=== PATIENT | male | born 1965 | race Caucasian/White ===

== ENCOUNTER → 2016-06-25 | Outpatient (CLI) | payer BC, OTHER ==
[~2016-06-25] MED LIST: BUPR-79 PO; DIVA500T3 PO; LOSA100T2 PO; NIFE60TA57 PO; ZIPR1CAP4 PO
[2016-06-25 14:05] LABS: BLOOD UREA NITROGEN 16 mg/dl (7-18); BUN/CREATININE RATIO 13.1 (10-20); CARBON DIOXIDE 27 mmol/L (21-32); CHLORIDE 102 mmol/L (98-107); GLUCOSE 84 mg/dl (70-99); POTASSIUM 3.9 mmol/L (3.5-5.1); SODIUM 139 mmol/L (136-145)
== END | disposition home or self-care (01) ==
LOC: C.LABMFLN 08:07
PROVIDERS: ATTEND Family Medicine
DX: Z11.59 Encounter for screening for other viral diseases (principal); I10 Essential (primary) hypertension

== ENCOUNTER 2016-07-29 12:21 | Emergency (ER) | payer BC ==
[~2016-07-29] VITALS: Ht 177.8 cm; Wt 96.2 kg
[~2016-07-29 12:21] MED LIST changes: -ZIPR1CAP4 PO
[2016-07-29 12:24] VITALS: TEMP 36.8; Ht 177.8 cm; Wt 96.2 kg
[2016-07-29] MEDS ORDERED: KETOROLAC TROMETHAMINE 30 MG/ML VIAL IV STA (12:31)
[2016-07-29] MEDS ORDERED: ONDANSETRON INJ 2 MG/ML 2 ML VIAL IV STA (12:31)
[2016-07-29] MEDS ORDERED: SODIUM CHLORIDE 0.9% 1000ML 1,000 ML IV STA (12:31)
[2016-07-29 12:51] LABS: BASO % 0.3 %; BASO ABS # 0.02 K/uL (0-0.2); COMPLETE YES; HEMATOCRIT 46.1 % (42-52); IG% 0.4 %; LYMPH % 39.7 %; MEAN CORPUSCULAR HEMOGLOBIN 31.1 pg (25-34); MEAN CORPUSCULAR HGB CONC 34.9 g/dl (32-36); MEAN PLATELET VOLUME 10.1 fL (7.4-10.4); MONO % 8.9 %; NEUT % 49.7 %; PLATELET COUNT 206 K/uL (130-400); RED BLOOD COUNT 5.18 M/uL (4.7-6.1); WHITE BLOOD COUNT 7.06 K/uL (4.8-10.8)
[2016-07-29 13:01] LABS: BUN/CREATININE RATIO 17.3 (10-20); CALCIUM 8.9 mg/dl (8.5-10.1); CREATININE 1.2 mg/dl (0.60-1.40); POTASSIUM 3.9 mmol/L (3.5-5.1)
--- NOTE | 2016-07-29 13:06 | DIAGNOSTIC IMAGING REPORT ---
ABDOMEN AND PELVIS CT WITHOUT CONTRAST CT DOSE: 1174.56 mGy.cm HISTORY: Right-sided flank pain TECHNIQUE: Multiaxial CT images of the abdomen and pelvis were performed without the use of intravenous and oral contrast according to the standard department stone protocol. COMPARISON STUDY: Abdomen and pelvis CT 01/30/2016. FINDINGS: No renal or ureteral stones. Mild fullness within the right renal collecting system and right ureter without hydronephrosis. There is also mild right periureteral fat stranding. There is a punctate stone within the left side the bladder. Therefore, these findings favor a recently passed right ureteral stone. Stable 9 mm hypodense lesion within the left hepatic dome. This is too small to characterize but favors a cyst. The unenhanced spleen, adrenal glands, pancreas, and gallbladder are unremarkable. The lung bases are clear. Tiny fat-containing umbilical hernia. Suboptimal evaluation for bowel pathology due to the lack of intravenous and oral contrast. However, there is no definite bowel wall thickening or obstruction. Normal appendix. Colonic diverticulosis. IMPRESSION: 1. No renal or ureteral stones. 2. Mild fullness within the right renal collecting system and right ureter without hydronephrosis. There is also mild right periureteral fat stranding. There is a punctate stone within the left side the bladder. Therefore, these findings favor a recently passed right ureteral stone. Electronically signed by: Jamar Patel M.D. 07/29/2016 1:04 PM Dictated Date/Time: 07/29/2016 12:59 PM
[2016-07-29] MEDS ORDERED: ZIPR1CAP4 PO (13:34)
[2016-07-29 13:36] LABS: URINE APPEARANCE CLEAR (CLEAR); URINE BILIRUBIN NEG (NEG); URINE COLOR YELLOW; URINE NITRITE NEG (NEG); URINE PH 6.5 (4.5-7.5); URINE SPECIFIC GRAVITY 1.018 (1.000-1.030); UROBILINOGEN NEG (NEG); ZZUR CULT IF INDIC CLEAN CATCH NO
[2016-07-29 13:38] LABS: MANUAL MICROSCOPIC REQUIRED? NO; REVIEW REQ? NO
--- NOTE | 2016-07-29 13:47 | EMERGENCY ROOM VISIT NOTE ---
History Report prepared by Anthony: Alla Irving Under the Supervision of: Dr. Naveen Lawson D.O. First contact with patient: 12:30 Chief Complaint: KIDNEY STONE Stated Complaint: KIDNEY STONE History of Present Illness The patient is a 51 year old male who presents to the Emergency Room with complaints of persistent abdominal pain starting last night. Last night he woke up with pain in his back. He took a muscle relaxer to go back to sleep. In the morning he began to feel pain in his testicle which then migrated up to his abdomen. He denies any pain or swelling in the testicle now. He reports decreased urination. He denies any hematuria. He had some nausea on the way here. Source of History: patient Onset: last night Position: abdomen Quality: other (pain) Timing: other (persistent) Associated Symptoms: + nausea Note: Pt reports decreased urination. Pt denies any hematuria. Review of Systems See HPI for pertinent positives & negatives. A total of 10 systems reviewed and were otherwise negative. Past Medical & Surgical Medical Problems: (1) Hypertension (2) Kidney stone Family History Cancer Hypertension Social History Smoking Status: Never Smoker Marital Status: other (legally ) Housing Status: lives alone Occupation Status: employed Current/Historical Medications Scheduled Bupropion (Wellbutrin Sr), 150 MG PO DAILY Divalproex Sodium (Depakote Er), 500 MG PO QAM Divalproex Sodium (Depakote Er), 1,500 MG PO QPM Losartan Potassium & Hydrochlo (Hyzaar), 1 TAB PO DAILY Nifedipine Ext Rel (Procardia Xl Ext Rel), 60 MG PO DAILY Ziprasidone Hcl (Geodon), 1 CAP PO BID Physical Exam Vital Signs Date Time Temp Pulse Resp B/P Pulse Ox O2 Delivery O2 Flow Rate FiO2 07/29/16 13:54 69 18 134/88 96 Room Air 07/29/16 12:24 36.8 66 18 162/100 96 Room Air Physical Exam CONSTITUTIONAL/VITAL SIGNS: Reviewed / noted above. GENERAL: Non-toxic in appearance. INTEGUMENTARY: Warm, dry, and [place]. HEAD: Normocephalic. EYES: without scleral icterus or trauma. ENT/OROPHARYNX: clear and moist. LYMPHADENOPATHY/NECK: Is supple without lymphadenopathy or meningismus. RESPIRATORY: Lungs clear and equal. CARDIOVASCULAR: Regular rate and rhythm. GI/ABDOMEN: Soft and nontender. No organomegaly or pulsatile mass. No rebound or guarding. Normal bowel sounds. EXTREMITIES: Warm and well perfused. BACK: No CVA tenderness. NEUROLOGICAL: Intact without focal deficits. PSYCHIATRIC: normal affect. MUSCULOSKELETAL: Normally developed with good muscle tone. Medical Decision & Procedures ER Provider Diagnostic Interpretation: Radiology results as stated below per my review and radiologist interpretation: ABDOMEN AND PELVIS CT WITHOUT CONTRAST CT DOSE: 1174.56 mGy.cm HISTORY: Right-sided flank pain TECHNIQUE: Multiaxial CT images of the abdomen and pelvis were performed without the use of intravenous and oral contrast according to the standard department stone protocol. COMPARISON STUDY: Abdomen and pelvis CT 01/30/2016. FINDINGS: No renal or ureteral stones. Mild fullness within the right renal collecting system and right ureter without hydronephrosis. There is also mild right periureteral fat stranding. There is a punctate stone within the left side the bladder. Therefore, these findings favor a recently passed right ureteral stone. Stable 9 mm hypodense lesion within the left hepatic dome. This is too small to characterize but favors a cyst. The unenhanced spleen, adrenal glands, pancreas, and gallbladder are unremarkable. The lung bases are clear. Tiny fat-containing umbilical hernia. Suboptimal evaluation for bowel pathology due to the lack of intravenous and oral contrast. However, there is no definite bowel wall thickening or obstruction. Normal appendix. Colonic diverticulosis. IMPRESSION: 1. No renal or ureteral stones. 2. Mild fullness within the right renal collecting system and right ureter without hydronephrosis. There is also mild right periureteral fat stranding. There is a punctate stone within the left side the bladder. Therefore, these findings favor a recently passed right ureteral stone. Electronically signed by: Jamar Patel M.D. 07/29/2016 1:04 PM Dictated Date/Time: 07/29/2016 12:59 PM Laboratory Results 07/29/16 12:35 Red Blood Count 5.18, Mean Corpuscular Volume 89.0, Mean Corpuscular Hemoglobin 31.1, Mean Corpuscular Hemoglobin Concent 34.9, Mean Platelet Volume 10.1, Neutrophils (%) (Auto) 49.7, Lymphocytes (%) (Auto) 39.7, Monocytes (%) (Auto) 8.9, Eosinophils (%) (Auto) 1.0, Basophils (%) (Auto) 0.3, Neutrophils # (Auto) 3.51, Lymphocytes # (Auto) 2.80, Monocytes # (Auto) 0.63, Eosinophils # (Auto) 0.07, Basophils # (Auto) 0.02 07/29/16 12:35 Test 07/29/16 12:35 07/29/16 13:00 White Blood Count 7.06 K/uL (4.8-10.8) Red Blood Count 5.18 M/uL (4.7-6.1) Hemoglobin 16.1 g/dL (14.0-18.0) Hematocrit 46.1 % (42-52) Mean Corpuscular Volume 89.0 fL (80-100) Mean Corpuscular Hemoglobin 31.1 pg (25-34) Mean Corpuscular Hemoglobin Concent 34.9 g/dl (32-36) Platelet Count 206 K/uL (130-400) Mean Platelet Volume 10.1 fL (7.4-10.4) Neutrophils (%) (Auto) 49.7 % Lymphocytes (%) (Auto) 39.7 % Monocytes (%) (Auto) 8.9 % Eosinophils (%) (Auto) 1.0 % Basophils (%) (Auto) 0.3 % Neutrophils # (Auto) 3.51 K/uL (1.4-6.5) Lymphocytes # (Auto) 2.80 K/uL (1.2-3.4) Monocytes # (Auto) 0.63 K/uL (0.11-0.59) Eosinophils # (Auto) 0.07 K/uL (0-0.5) Basophils # (Auto) 0.02 K/uL (0-0.2) RDW Standard Deviation 41.7 fL (36.4-46.3) RDW Coefficient of Variation 12.9 % (11.5-14.5) Immature Granulocyte % (Auto) 0.4 % Immature Granulocyte # (Auto) 0.03 K/uL (0.00-0.02) Anion Gap 5.0 mmol/L (3-11) Est Creatinine Clear Calc Drug Dose 82.9 ml/min Estimated GFR () 79.5 Estimated GFR (Non- 68.6 BUN/Creatinine Ratio 17.3 (10-20) Calcium Level 8.9 mg/dl (8.5-10.1) Total Bilirubin 0.4 mg/dl (0.2-1) Direct Bilirubin 0.1 mg/dl (0-0.2) Aspartate Amino Transf (AST/SGOT) 18 U/L (15-37) Alanine Aminotransferase (ALT/SGPT) 28 U/L (12-78) Alkaline Phosphatase 99 U/L (45-117) Total Protein 7.3 gm/dl (6.4-8.2) Albumin 3.7 gm/dl (3.4-5.0) Lipase 239 U/L (73-393) Urine Color YELLOW Urine Appearance CLEAR (CLEAR) Urine pH 6.5 (4.5-7.5) Urine Specific [place] 1.018 (1.000-1.030) Urine Protein NEG (NEG) Urine Glucose (UA) NEG (NEG) Urine Ketones NEG (NEG) Urine Occult Blood 3+ (NEG) Urine Nitrite NEG (NEG) Urine Bilirubin NEG (NEG) Urine Urobilinogen NEG (NEG) Urine Leukocyte Esterase NEG (NEG) Urine WBC (Auto) 1-5 /hpf (0-5) Urine RBC (Auto) >30 /hpf (0-4) Urine Hyaline Casts (Auto) 0 /lpf (0-5) Urine Epithelial Cells (Auto) 5-10 /lpf (0-5) Urine Bacteria (Auto) NEG (NEG) Laboratory results as stated above per my review. Medications Administered Medications (Trade) Dose Ordered Sig/Jazz Route Start Time Stop Time Status Last Admin Dose Admin Sodium Chloride (Nss 1000ml) 1,000 ml @ 999 mls/hr Q1H1M STAT IV 07/29/16 12:31 07/29/16 13:31 DC 07/29/16 12:39 999 MLS/HR Ondansetron HCl (Zofran Inj) 4 mg NOW STAT IV 07/29/16 12:31 07/29/16 12:32 DC 07/29/16 12:40 4 MG Ketorolac Tromethamine (Toradol Inj) 30 mg NOW STAT IV 07/29/16 12:31 07/29/16 12:32 DC 07/29/16 12:40 30 MG ED Course 1230: Previous medical records were reviewed. The patient was evaluated in room A10. A complete history and physical examination was performed. 1231: Toradol Inj 30 mg IV, Zofran Inj 4 mg IV, NSS 1000 ml @ 999 mls/hr IV. 1348: On reevaluation, the patient is resting comfortably. I discussed the results and findings with the patient. He verbalized agreement of the treatment plan. He was discharged home. Medical Decision Differential considered: pancreatitis, hepatitis, or acute cholecystitis, AAA, UTI, pyelonephritis, kidney stones, appendicitis, diverticulitis, shingles, bowel obstruction mesenteric ischemia, intussusception,hernia, testicular torsion. This is a 51-year-old male who presents to the ED with a chief complaint of right flank pain. Details listed above. The patient's symptoms initially started last night. He had a reprieve from the pain earlier today but then returned and started radiating into the right testicular area. He denies any testicle pain. He had some associated nausea but no vomiting. His exam was relatively unremarkable. CT scan of the abdomen and pelvis reveals what appears to be a passed right renal calculus. Urine showed 3+ blood. PRP was unremarkable. The patient was treated with IV Toradol, IV Zofran and IV fluids and he was told the results of the test. He is felt to be stable for discharge. Impression Primary Impression: Renal colic on right side Additional Impression: Kidney stone Scribe Attestation The scribe's documentation has been prepared under my direction and personally reviewed by me in its entirety. I confirm that the note above accurately reflects all work, treatment, procedures, and medical decision making performed by me. Departure Information Dispostion Home / Self-Care Referrals Cesar Limon M.D. (PCP) Patient Instructions Kidney Stones Expectant Therapy, My [facility] Additional Instructions Follow-up with your doctor as needed. Take Tylenol or Motrin for any residual pain. Problem Qualifiers
[2016-07-29 13:54] VITALS: BP 134/88; PULSE 69; O2SAT 96
== END 2016-07-29 14:00 | disposition home or self-care (01) ==
LOC: C.EDB 12:21 → C.EDA 14:00
DX: N20.0 Calculus of kidney (principal); Z87.442 Personal history of urinary calculi; I10 Essential (primary) hypertension; Z79.899 Other long term (current) drug therapy; Z80.9 Family history of malignant neoplasm, unspecified; Z82.49 Family history of ischemic heart disease and other diseases of the circulatory system

== ENCOUNTER → 2016-08-27 | Outpatient (CLI) | payer BC ==
[~2016-08-27] MED LIST changes: +ZIPR1CAP4 PO
--- NOTE | 2016-08-28 11:06 | CODING QUERY NO DIAGNOSIS ---
TREATMENT RENDERED WITHOUT A DIAGNOSIS 63 To promote full compliance with coding requirements relating to patient care, physician participation is requested in all cases of vaccine key customer leader uncertainty. Please assist us with providing a diagnosis/symptom for the test(s) below: A diagnosis/symptom was not documented on your Order. A valid diagnosis/symptom is required to bill all insurances. Please remember that we are unable to code a diagnosis of rule out, probable, possible, questionable, or suspected. DOS 08/27/16 Tests that require a diagnosis: * ALBUMIN DIAGNOSIS: * ALKALINE PHOSPHATASE DIAGNOSIS: * ALT/SGPT DIAGNOSIS: * ALT/SGOT DIAGNOSIS: * BILIRUBIN, TOTAL DIAGNOSIS: * TOTAL PROTEIN DIAGNOSIS: Provider Signature: Date: Thank you Connielucia Jordan [facility] Once completed, please kindly fax back to [phone] For questions please call [phone]
== END | disposition home or self-care (01) ==
LOC: C.LABMFLN 07:59
PROVIDERS: ATTEND Podiatrist
DX: B35.1 Tinea unguium (principal)

== ENCOUNTER → 2016-11-12 | Outpatient (CLI) | payer BC ==
[2016-11-12 14:28] LABS: BASO % 0.5 %; BASO ABS # 0.03 K/uL (0-0.2); COMPLETE YES; EOS % 1.3 %; HEMATOCRIT 48.3 % (42-52); IG% 0.7 %; LYMPH % 39.1 %; LYMPH ABS # 2.32 K/uL (1.2-3.4); MEAN CELL VOLUME 88.8 fL (80-100); MEAN CORPUSCULAR HEMOGLOBIN 30.7 pg (25-34); MEAN CORPUSCULAR HGB CONC 34.6 g/dl (32-36); MEAN PLATELET VOLUME 9.9 fL (7.4-10.4); MONO % 10.3 %; NEUT % 48.1 %; PLATELET COUNT 237 K/uL (130-400); RED BLOOD COUNT 5.44 M/uL (4.7-6.1); WHITE BLOOD COUNT 5.94 K/uL (4.8-10.8)
[2016-11-12 15:26] LABS: ALT/SGPT 39 U/L (12-78); BLOOD UREA NITROGEN 15 mg/dl (7-18); BUN/CREATININE RATIO 11.7 (10-20); CALCIUM 8.9 mg/dl (8.5-10.1); CARBON DIOXIDE 29 mmol/L (21-32); CHLORIDE 103 mmol/L (98-107); GLUCOSE 94 mg/dl (70-99); POTASSIUM 3.5 mmol/L (3.5-5.1); SODIUM 141 mmol/L (136-145)
[2016-11-12 15:29] LABS: ALKALINE PHOSPHATASE 96 U/L (45-117); AST/SGOT 24 U/L (15-37)
== END | disposition home or self-care (01) ==
LOC: C.LABMFLN 10:26
PROVIDERS: ATTEND Psychiatry & Neurology Psychiatry
DX: F31.32 Bipolar disorder, current episode depressed, moderate (principal)

== ENCOUNTER → 2017-05-13 | Outpatient (CLI) | payer BC | END | disposition home or self-care (01) | LOC: C.PATHSPEC 09:18 | PROVIDERS: ATTEND Family Medicine | DX: C44.91 Basal cell carcinoma of skin, unspecified (principal); Z85.828 Personal history of other malignant neoplasm of skin ==

== ENCOUNTER → 2017-07-15 | Outpatient (CLI) | payer OTHER ==
[2017-07-15 17:55] LABS: BASO % 0.5 %; BASO ABS # 0.03 K/uL (0-0.2); EOS % 2.1 %; EOS ABS # 0.13 K/uL (0-0.5); HEMATOCRIT 46.2 % (42-52); IG# 0.04 K/uL (0.00-0.02); LYMPH % 37.6 %; LYMPH ABS # 2.33 K/uL (1.2-3.4); MEAN CELL VOLUME 89.2 fL (80-100); MEAN CORPUSCULAR HEMOGLOBIN 30.9 pg (25-34); MEAN CORPUSCULAR HGB CONC 34.6 g/dl (32-36); MONO % 8.2 %; MONO ABS # 0.51 K/uL (0.11-0.59); NEUT ABS # 3.16 K/uL (1.4-6.5); PLATELET COUNT 224 K/uL (130-400); RED CELL DISTRIBUTION WIDTH CV 13.1 % (11.5-14.5)
[2017-07-15 18:08] LABS: BLOOD UREA NITROGEN 16 mg/dl (7-18); CALCIUM 8.5 mg/dl (8.5-10.1); CARBON DIOXIDE 30 mmol/L (21-32); CHOLESTEROL 150 mg/dl (0-200); CREATININE 1.01 mg/dl (0.60-1.40); GLUCOSE 82 mg/dl (70-99); GLUCOSE,FASTING 82 mg/dl (70-99); POTASSIUM 3.6 mmol/L (3.5-5.1); SODIUM 138 mmol/L (136-145)
[2017-07-15 18:09] LABS: LDL CHOLESTEROL CALCULATED 77 mg/dl
== END | disposition home or self-care (01) ==
LOC: C.LABMFLN 10:55
PROVIDERS: ATTEND Psychiatry & Neurology Psychiatry
DX: F31.32 Bipolar disorder, current episode depressed, moderate (principal)